=== PATIENT | male | born 1975 ===

== ENCOUNTER 2024-09-15 07:29 | Outpatient (CLI) | payer OTHER | END 2024-09-15 07:44 | disposition home or self-care (01) | LOC: TOM 07:29 | PROVIDERS: ATTEND Colon & Rectal Surgery | DX: C18.4 Malignant neoplasm of transverse colon (principal) ==

== ENCOUNTER 2024-09-20 09:45 | Inpatient (IN) | payer OTHER ==
[~2024-09-20] VITALS: Ht 177.8 cm; Wt 105.2 kg
[2024-09-20 11:15] VITALS: BP 159/80
[2024-09-20 12:06] LABS: RH POSITIVE
[2024-09-29] MEDS ORDERED: BUPIVACAINE HCL 30 ML VIAL IJ ONE (10:15)
[2024-09-29] MEDS ORDERED: CEFTRIAXONE SODIUM 2,000 MG VIAL IV SCH (10:15)
[2024-09-29] MEDS ORDERED: LIDOCAINE HCL 1%/EPINEPHRINE 20ML VIAL IJ ONE (10:15)
[2024-09-29] MEDS ORDERED: METRONIDAZOLE/SODIUM CHLORIDE 500 MG/100 ML PIGGYBACK IV SCH (10:15)
[2024-09-29] MEDS ORDERED: SUGAMMADEX SODIUM 200 MG/2 ML VIAL IV ONE (15:30)
[2024-09-29] MEDS ORDERED: ONDANSETRON HCL 2 MG/ML VIAL IV PRN (17:45)
[2024-09-29] MEDS ORDERED: RINGERS SOLUTION,LACTATED 1,000 ML IV SCH (17:45)
[2024-09-29] MEDS ORDERED: OxyCODONE HCL 5 MG TABLET (ROXICODONE) PO PRN (17:45)
[2024-09-29] MEDS ORDERED: MORPHINE SULFATE 4 MG/ML VIAL IV PRN (17:45)
[2024-09-29] MEDS ORDERED: ACETAMINOPHEN 500 MG GEL..CAP PO SCH (18:00)
[2024-09-29] MEDS ORDERED: MORPHINE SULFATE 4 MG,MORPHINE SULFATE 2 MG IV PRN (18:00)
[2024-09-29 19:34] LABS: HEMATOCRIT 41.6 % (39.0-48.0); MEAN CELL VOLUME 87.5 fL (80.0-100.00); MEAN CORPUSCULAR HEMOGLOBIN 29.3 pg (27.00-32.0); MEAN CORPUSCULAR HGB CONC 33.5 g/dl (32.0-36.0); PLATELET COUNT 223 K/uL (150-450); RED BLOOD COUNT 4.76 M/uL (4.00-6.00)
[2024-09-29 19:57] LABS: ALBUMIN 3.5 gm/dL (3.4-5.0); CALCIUM 8.8 mg/dL (8.5-10.1); CREATININE SERUM 1.15 mg/dL (0.70-1.30); GFR 67.31; MAGNESIUM 1.6 mg/dL (1.8-2.4); PHOSPHOROUS 2.3 mg/dL (2.5-4.9); POTASSIUM 4.46 mEq/L (3.5-5.1)
[2024-09-29] MEDS ORDERED: POTASSIUM PHOS,M-BASIC-D-BASIC 15 MM in 0.9 % SODIUM CHLORIDE 250 ML IV ONE (20:45)
[2024-09-29] MEDS ORDERED: MAGNESIUM SULFATE 50% 1,000 MG/2 ML VIAL IV ONE (20:45)
[2024-09-29] MEDS ORDERED: SIMETHICONE 125 MG CAPSULE PO SCH (21:00)
[2024-09-29] MEDS ORDERED: FAMOTIDINE/PF 20 MG/2 ML VIAL IV PUSH SCH (21:00)
[2024-09-30 00:50] VITALS: BP 141/85; O2SAT 100
[2024-09-30] MEDS ORDERED: GABAPENTIN 300 MG CAPSULE PO SCH (01:00)
[2024-09-30 08:00] VITALS: BP 128/76; O2SAT 95
[2024-09-30 08:50] LABS: HEMATOCRIT 41.4 % (39.0-48.0); HEMOGLOBIN 13.7 g/dL (13-16.00); MEAN CELL VOLUME 87.9 fL (80.0-100.00); MEAN CORPUSCULAR HEMOGLOBIN 29.1 pg (27.00-32.0); MEAN CORPUSCULAR HGB CONC 33.2 g/dl (32.0-36.0); PLATELET COUNT 206 K/uL (150-450); RED BLOOD COUNT 4.71 M/uL (4.00-6.00); RED CELL DISTRIBUTION WIDTH 13.2 % (11.5-14.5)
[2024-09-30] MEDS ORDERED: MAGNESIUM CHLORIDE 70 MG TABLET.DR PO SCH (09:00)
[2024-09-30] MEDS ORDERED: LACTOBACILLUS ACIDOPHILUS 1 CAP CAP PO SCH (09:00)
[2024-09-30] MEDS ORDERED: POLYETHYLENE GLYCOL 3350 17 GM BLIST.PACK PO SCH (09:00)
[2024-09-30 09:04] LABS: ALBUMIN 3.2 gm/dL (3.4-5.0); CALCIUM 8.6 mg/dL (8.5-10.1); CREATININE SERUM 1.05 mg/dL (0.70-1.30); GFR 74.76; MAGNESIUM 1.8 mg/dL (1.8-2.4); PHOSPHOROUS 2.8 mg/dL (2.5-4.9); POTASSIUM 4.08 mEq/L (3.5-5.1)
[2024-09-30] MEDS ORDERED: ENOXAPARIN SODIUM 40 MG/0.4 ML SYRINGE SUBCUTANEO SCH (17:00)
[2024-09-30] MEDS ORDERED: FAMOtidine 20 MG TABLET PO SCH (17:53)
[2024-09-30] MEDS ORDERED: POTASSIUM PHOS,M-BASIC-D-BASIC 15 MM in 0.9 % SODIUM CHLORIDE 250 ML IV ONE (18:00)
[2024-09-30] MEDS ORDERED: MAGNESIUM SULFATE IN WATER 4 GM/100 ML PIGGYBACK IV ONE (18:00)
[2024-09-30] MEDS ORDERED: MORPHINE SULFATE 4 MG/ML CARTRIDGE IV STA (18:10)
[2024-09-30] MEDS ORDERED: ENALAPRILAT DIHYDRATE 1.25 MG/ML VIAL IV PRN (18:45)
[2024-09-30 19:49] VITALS: BP 131/78; O2SAT 95
[2024-10-01 00:34] VITALS: BP 118/73; O2SAT 100
[2024-10-01 08:00] VITALS: BP 160/90; O2SAT 96
[2024-10-01 08:43] LABS: HEMATOCRIT 38.5 % (39.0-48.0); HEMOGLOBIN 13.2 g/dL (13-16.00); MEAN CELL VOLUME 86.9 fL (80.0-100.00); MEAN CORPUSCULAR HEMOGLOBIN 29.9 pg (27.00-32.0); MEAN CORPUSCULAR HGB CONC 34.4 g/dl (32.0-36.0); PLATELET COUNT 224 K/uL (150-450); RED BLOOD COUNT 4.44 M/uL (4.00-6.00); RED CELL DISTRIBUTION WIDTH 13.5 % (11.5-14.5)
[2024-10-01 09:20] LABS: ALBUMIN 3.3 gm/dL (3.4-5.0); CALCIUM 8.6 mg/dL (8.5-10.1); CREATININE SERUM 0.98 mg/dL (0.70-1.30); GFR 80.96; MAGNESIUM 2.1 mg/dL (1.8-2.4); POTASSIUM 4.73 mEq/L (3.5-5.1)
[2024-10-01 09:41] LABS: PHOSPHOROUS 1.9 mg/dL (2.5-4.9)
[2024-10-01] MEDS ORDERED: POTASSIUM PHOS,M-BASIC-D-BASIC 3 MM/ML VIAL IV ONE (13:00)
[2024-10-01 16:00] VITALS: BP 139/74; O2SAT 96
[2024-10-01] MEDS ORDERED: NAPH,MB-DB/K PH,MBDB 1 PKT PACKET PO SCH (20:49)
[2024-10-01] MEDS ORDERED: DOCUSATE SODIUM 100MG CAP PO SCH (20:58)
[2024-10-02 00:30] VITALS: BP 135/74; O2SAT 98
[2024-10-02 06:27] LABS: HEMATOCRIT 36.1 % (39.0-48.0); HEMOGLOBIN 12.5 g/dL (13-16.00); MEAN CELL VOLUME 86.3 fL (80.0-100.00); MEAN CORPUSCULAR HEMOGLOBIN 29.8 pg (27.00-32.0); MEAN CORPUSCULAR HGB CONC 34.5 g/dl (32.0-36.0); PLATELET COUNT 197 K/uL (150-450); RED BLOOD COUNT 4.18 M/uL (4.00-6.00); RED CELL DISTRIBUTION WIDTH 13.6 % (11.5-14.5)
[2024-10-02 06:52] LABS: ALBUMIN 2.9 gm/dL (3.4-5.0); CALCIUM 8.4 mg/dL (8.5-10.1); GFR 79.09; PHOSPHOROUS 2.8 mg/dL (2.5-4.9); POTASSIUM 3.85 mEq/L (3.5-5.1)
[2024-10-02 08:00] VITALS: BP 170/90; O2SAT 96
[2024-10-02 10:46] VITALS: BP 130/82
== END 2024-10-02 12:16 | disposition home or self-care (01) | DRG 331 ==
LOC: EDUNIT# 09:45 → O/R 09-29 05:56 → SURH 09-29 09:45
PROVIDERS: ADMIT Colon & Rectal Surgery; ATTEND Colon & Rectal Surgery
PROC: 07BB4ZZ Excision of Mesenteric Lymphatic, Percutaneous Endoscopic Approach (ICD-10-PCS; 2024-09-29)
PROC: 0DBU4ZZ Excision of Omentum, Percutaneous Endoscopic Approach (ICD-10-PCS; 2024-09-29)
PROC: 0DTG4ZZ Resection of Left Large Intestine, Percutaneous Endoscopic Approach (ICD-10-PCS; principal; 2024-09-29 13:45)
DX: C18.5 Malignant neoplasm of splenic flexure (principal); R59.0 Localized enlarged lymph nodes; K63.5 Polyp of colon

== ENCOUNTER 2024-09-25 05:45 | Day surgery (SDC) | payer OTHER ==
[2024-09-25] MEDS ORDERED: MIDAZOLAM HCL 2 MG/2 ML VIAL IV ONE (10:45)
[2024-09-25] MEDS ORDERED: DIPHENHYDRAMINE HCL 50 MG/ML VIAL 1ML IV ONE (10:45)
[2024-09-25] MEDS ORDERED: ONDANSETRON HCL 2 MG/ML VIAL IV ONE (10:45)
[2024-09-25] MEDS ORDERED: fentaNYL CITRATE 50 MCG/ML AMPUL IV PUSH ONE (10:45)
== END 2024-09-25 12:00 | disposition home or self-care (01) ==
LOC: AMB-ENDOS 05:45 → CIR.AMB 09:45 → AMB-ENDOS 12:00
PROVIDERS: ATTEND Colon & Rectal Surgery
DX: C18.9 Malignant neoplasm of colon, unspecified (principal); K63.5 Polyp of colon; K57.30 Diverticulosis of large intestine without perforation or abscess without bleeding